=== PATIENT | female | born 1980 | race Caucasian/White ===

== ENCOUNTER 2017-03-09 17:02 | Emergency (ER) | payer MEDICAID ==
[~2017-03-09] VITALS: Ht 167.6 cm; Wt 140.0 kg
[~2017-03-09 17:02] MED LIST: IBUP-2030 PO
[2017-03-09] MEDS ORDERED: SODIUM CHLORIDE 0.9% 1,000 ML IV ONE (19:05)
[2017-03-09] MEDS ORDERED: ACETAMINOPHEN 325MG TABLET PO STA (19:05)
[2017-03-09] MEDS ORDERED: ONDANSETRON HCL 4MG/2ML VIAL IV STA (19:05)
[2017-03-09 20:07] LABS: BASOPHILS % 0.2 % (0.0-2.0); CARBON DIOXIDE 30 mEq/L (21-32); CHLORIDE 100 mEq/L (98-107); EOSINOPHILS % 0.4 % (0.0-5.0); HEMATOCRIT. 38.7 % (36.0-48.0); HEMOGLOBIN. 12.7 g/dL (12.0-16.0); LYMPHOCYTES % 7.7 % (20.0-50.0); MEAN CORPUSCULAR HEMOGLOBIN 27.6 pg (28.0-32.0); MEAN CORPUSCULAR VOLUME 84.2 fL (81.0-99.0); MEAN PLATELET VOLUME 8.1 fl (7.4-10.4); MONOCYTES % 4.5 % (2.0-8.0); NEUTROPHILS % 87.2 % (40.0-76.0); PLATELET 208 x1000/uL (130-400); RED CELL DISTRIBUTION WIDTH 15.2 % (11.6-14.6)
[2017-03-09 21:15] VITALS: BP 130/99
[2017-03-09 21:44] LABS: CLARITY URINE CLOUDY (CLEAR); COLOR URINE YELLOW (YELLOW); KETONES URINE NEGATIVE (NEGATIVE); LEUKOCYTE ESTERASE URINE TRACE (NEGATIVE); NITRITE URINE NEGATIVE (NEGATIVE); OCCULT BLOOD URINE NEGATIVE (NEGATIVE); PROTEIN URINE 2+ (NEGATIVE); SPECIFIC GRAVITY URINE 1.021 (1.005-1.030)
== END 2017-03-09 22:40 | disposition home or self-care (01) ==
LOC: ER 17:44
DX: J11.1 Influenza due to unidentified influenza virus with other respiratory manifestations (principal); N30.90 Cystitis, unspecified without hematuria; J45.909 Unspecified asthma, uncomplicated; Z88.8 Allergy status to other drugs, medicaments and biological substances
CPT/HCPCS: 36415; 71010; 80053; 81001; 85025; 87804; 96374; 99285; J2405; J7030

== ENCOUNTER 2018-03-05 14:46 | Inpatient (IN) | payer MEDICAID ==
[~2018-03-05] VITALS: Ht 160 cm; Wt 174.4 kg
[2018-03-05 17:13] LABS: CLARITY URINE CLOUDY (CLEAR); COLOR URINE YELLOW (YELLOW); KETONES URINE NEGATIVE (NEGATIVE); LEUKOCYTE ESTERASE URINE 2+ (NEGATIVE); NITRITE URINE NEGATIVE (NEGATIVE); OCCULT BLOOD URINE NEGATIVE (NEGATIVE); PH URINE 7.5 (4.5-8.0); PROTEIN URINE 1+ (NEGATIVE); SPECIFIC GRAVITY URINE 1.021 (1.005-1.030)
[2018-03-05 18:32] LABS: BASOPHILS % 0.6 % (0.0-2.0); EOSINOPHILS % 1.6 % (0.0-5.0); HEMATOCRIT. 39.8 % (36.0-48.0); HEMOGLOBIN. 13.1 g/dL (12.0-16.0); LYMPHOCYTES % 23.1 % (20.0-50.0); MEAN CORPUSCULAR HEMOGLOBIN 27.3 pg (28.0-32.0); MEAN PLATELET VOLUME 8.1 fl (7.4-10.4); MONOCYTES % 5.1 % (2.0-8.0); NEUTROPHILS % 69.6 % (40.0-76.0); PLATELET 282 x1000/uL (130-400); RED BLOOD CELL COUNT 4.79 mill/uL (4.2-5.4); RED CELL DISTRIBUTION WIDTH 14.2 % (11.6-14.6)
[2018-03-05 18:37] LABS: CHLORIDE 105 mEq/L (98-107)
[2018-03-05] MEDS ORDERED: KETOROLAC 30MG/ML VIAL IV PRN (20:00)
[2018-03-05] MEDS ORDERED: ONDANSETRON HCL 4MG/2ML INJ IV PRN (20:00)
[2018-03-05] MEDS ORDERED: ACETAMINOPHEN 325MG TABLET PO PRN (20:00)
[2018-03-05 20:14] LABS: LDL CHOLESTEROL 67 mg/dL (5-100)
[2018-03-05 20:15] LABS: HDL CHOLESTEROL 36 mg/dL (40-59)
[2018-03-05 20:16] LABS: CREATINE KINASE 25 IU/L (26-192); CREATINE KINASE MB FRACTION < 1.0 ng/mL (0.5-3.6)
[2018-03-05 21:50] VITALS: BP 132/76
[2018-03-06] VITALS: BP 113/61
[2018-03-06] MEDS ORDERED: CEFTRIAXONE 1 G PREMIX 50 ML IV SCH (03:00)
[2018-03-06 04:00] VITALS: BP 98/57
[2018-03-06 07:13] LABS: BASOPHILS % 0.4 % (0.0-2.0); EOSINOPHILS % 2.6 % (0.0-5.0); HEMOGLOBIN. 12.5 g/dL (12.0-16.0); LYMPHOCYTES % 24.6 % (20.0-50.0); MEAN CORPUSCULAR HEMOGLOBIN 27.6 pg (28.0-32.0); MEAN CORPUSCULAR VOLUME 84.2 fL (81.0-99.0); NEUTROPHILS % 65.4 % (40.0-76.0); PLATELET 259 x1000/uL (130-400); RED BLOOD CELL COUNT 4.51 mill/uL (4.2-5.4); RED CELL DISTRIBUTION WIDTH 14.7 % (11.6-14.6)
[2018-03-06 08:00] VITALS: BP 107/56
[2018-03-06 08:01] LABS: CHLORIDE 105 mEq/L (98-107)
[2018-03-06] MEDS ORDERED: ASPIRIN 81MG TABLET PO SCH (10:00)
[2018-03-06] MEDS ORDERED: REGADENOSON 0.4 MG/5 ML IV ONE ×2 (10:15→13:14)
[2018-03-06 12:00] VITALS: BP 112/64
[2018-03-06 12:19] LABS: T4 FREE 1.05 ng/dL (0.76-1.46)
[2018-03-06 16:00] VITALS: BP 119/62
[2018-03-06 16:16] VITALS: BP 107/56
[2018-03-07] MEDS ORDERED: CEFTRIAXONE 1 G PREMIX 50 ML IV SCH (02:00)
== END 2018-03-06 17:04 | disposition home or self-care (01) | DRG 203 ==
LOC: ER 14:46 → 6WST 17:48 → EDBEDREQ 17:59 → EDBEDREQTM 17:59 → ENRESERV 20:43
PROVIDERS: ADMIT Internal Medicine; ATTEND Internal Medicine
DX: M94.0 Chondrocostal junction syndrome [Tietze] (principal); E44.1 Mild protein-calorie malnutrition; N39.0 Urinary tract infection, site not specified; R07.9 Chest pain, unspecified; E66.01 Morbid (severe) obesity due to excess calories; E78.5 Hyperlipidemia, unspecified; I10 Essential (primary) hypertension; G43.909 Migraine, unspecified, not intractable, without status migrainosus; Z68.44 Body mass index [BMI] 60.0-69.9, adult
CPT/HCPCS: 36415; 71045; 78452; 80048; 80061; 81025; 82550; 82553; 83036; 83880; 84439; 84443; 84484; 85379; 93005; 93017; 93306; 93970; 99285; A9500; J0696; J2785

== ENCOUNTER 2018-04-27 14:25 | Emergency (ER) | payer MEDICAID ==
[~2018-04-27] VITALS: Ht 160 cm; Wt 172.0 kg
[2018-04-27 15:28] VITALS: BP 142/85
== END 2018-04-27 17:54 | disposition home or self-care (01) ==
LOC: ER 14:49
DX: J06.9 Acute upper respiratory infection, unspecified (principal); I10 Essential (primary) hypertension; J45.909 Unspecified asthma, uncomplicated; Z87.19 Personal history of other diseases of the digestive system; Z98.890 Other specified postprocedural states
CPT/HCPCS: 99283

== ENCOUNTER 2018-07-15 18:19 | Emergency (ER) | payer MEDICAID ==
[~2018-07-15] VITALS: Ht 160 cm; Wt 160.0 kg
[2018-07-15] MEDS ORDERED: SODIUM CHLORIDE 0.9% 1,000 ML IV ONE (20:12)
[2018-07-15] MEDS ORDERED: ALBUTEROL (0.083%) 2.5MG/3ML NEB HHN STA (20:39)
[2018-07-15 21:06] LABS: BASOPHILS % 0.5 % (0.0-2.0); EOSINOPHILS % 4.9 % (0.0-5.0); HEMOGLOBIN. 12.8 g/dL (12.0-16.0); LYMPHOCYTES % 17.6 % (20.0-50.0); MEAN CORPUSCULAR HEMOGLOBIN 27.7 pg (28.0-32.0); MEAN CORPUSCULAR VOLUME 84.1 fL (81.0-99.0); MEAN PLATELET VOLUME 8.5 fl (7.4-10.4); MONOCYTES % 4.9 % (2.0-8.0); NEUTROPHILS % 72.1 % (40.0-76.0); PLATELET 200 x1000/uL (130-400); RED BLOOD CELL COUNT 4.64 mill/uL (4.2-5.4); RED CELL DISTRIBUTION WIDTH 14.3 % (11.6-14.6)
[2018-07-15 21:08] LABS: *AMPHETAMINES SCREEN URINE NEGATIVE (NEGATIVE); *BARBITURATES SCREEN URINE NEGATIVE (NEGATIVE)
[2018-07-15 21:09] LABS: *BENZODIAZEPINES SCREEN URINE NEGATIVE (NEGATIVE); *COCAINE SCREEN URINE NEGATIVE (NEGATIVE); CANNABINOID URINE SCREEN NEGATIVE (NEGATIVE); METHADONE URINE SCREEN NEGATIVE (NEGATIVE); OPIATES URINE SCREEN NEGATIVE (NEGATIVE); PHENCYCLIDINE URINE SCREEN NEGATIVE (NEGATIVE)
[2018-07-15 21:12] LABS: PARTIAL THROMBOPLASTIN TIME 26.9 sec (23.4-31.0); PROTHROMBIN TIME 10.1 sec (9.6-11.0)
[2018-07-15 21:14] LABS: CLARITY URINE CLOUDY (CLEAR); COLOR URINE YELLOW (YELLOW); KETONES URINE NEGATIVE (NEGATIVE); LEUKOCYTE ESTERASE URINE 3+ (NEGATIVE); NITRITE URINE NEGATIVE (NEGATIVE); OCCULT BLOOD URINE NEGATIVE (NEGATIVE); PH URINE 6.5 (4.5-8.0); PROTEIN URINE TRACE (NEGATIVE); SPECIFIC GRAVITY URINE 1.016 (1.005-1.030); UROBILINOGEN URINE 0.2 E.U./dL (0.2-1.0)
[2018-07-15 21:23] LABS: CHLORIDE 106 mEq/L (98-107)
[2018-07-15 21:27] LABS: ETHANOL BLOOD < 10 mg/dL
[2018-07-15 21:35] LABS: HCG SCREEN NEGATIVE
[2018-07-16 00:31] VITALS: BP 133/68
== END 2018-07-16 00:30 | disposition home or self-care (01) ==
LOC: ER 18:19
DX: J45.909 Unspecified asthma, uncomplicated (principal); J20.9 Acute bronchitis, unspecified; N39.0 Urinary tract infection, site not specified; R07.89 Other chest pain; E66.01 Morbid (severe) obesity due to excess calories; Z68.44 Body mass index [BMI] 60.0-69.9, adult; I10 Essential (primary) hypertension; Z90.49 Acquired absence of other specified parts of digestive tract; Z98.890 Other specified postprocedural states; Z79.899 Other long term (current) drug therapy
CPT/HCPCS: 36415; 71045; 80053; 80305; 80320; 81003; 81025; 83690; 83880; 84484; 84703; 85025; 85610; 85730; 87086; 93005; 94640; 99284; J7030; J7611; G0480

== ENCOUNTER 2019-01-25 17:29 | Emergency (ER) | payer MEDICAID ==
[~2019-01-25] VITALS: Ht 160 cm; Wt 181.0 kg
[2019-01-25] MEDS ORDERED: LORAZEPAM 0.5MG TABLET PO ONE (19:45)
[2019-01-25 20:20] VITALS: BP 152/49
== END 2019-01-25 20:36 | disposition home or self-care (01) ==
LOC: ER 17:29
DX: F41.9 Anxiety disorder, unspecified (principal); R06.02 Shortness of breath; J45.909 Unspecified asthma, uncomplicated; I10 Essential (primary) hypertension; Z90.49 Acquired absence of other specified parts of digestive tract; Z98.890 Other specified postprocedural states
CPT/HCPCS: 99284

== ENCOUNTER 2019-05-28 15:48 | Inpatient (IN) | payer MEDICAID ==
[~2019-05-28] VITALS: Ht 160 cm; Wt 190.5 kg
[2019-05-28] MEDS ORDERED: FUROSEMIDE 40MG/4ML VIAL IV ONE (18:45)
[2019-05-28] MEDS ORDERED: ASPIRIN 81MG TABLET PO ONE (18:45)
[2019-05-28] MEDS ORDERED: NITROGLYCERIN OINT 1GM/INCH UDPKT TD ONE (18:45)
[2019-05-28 19:59] LABS: BASOPHILS % 1.5 % (0.0-2.0); EOSINOPHILS % 2.2 % (0.0-5.0); HEMATOCRIT. 34.5 % (36.0-48.0); HEMOGLOBIN. 11.6 g/dL (12.0-16.0); LYMPHOCYTES % 21.6 % (20.0-50.0); MEAN CORPUSCULAR HEMOGLOBIN 28.1 pg (28.0-32.0); MEAN CORPUSCULAR VOLUME 83.6 fL (81.0-99.0); MEAN PLATELET VOLUME 8.4 fl (7.4-10.4); MONOCYTES % 6.9 % (2.0-8.0); NEUTROPHILS % 67.8 % (40.0-76.0); PLATELET 260 x1000/uL (130-400); RED BLOOD CELL COUNT 4.13 mill/uL (4.2-5.4); RED CELL DISTRIBUTION WIDTH 15.2 % (11.6-14.6)
[2019-05-28 20:06] LABS: CHLORIDE 107 mEq/L (98-107)
[2019-05-28 20:07] LABS: INR 0.9; PARTIAL THROMBOPLASTIN TIME 29.4 sec (23.4-31.0)
[2019-05-28 20:11] LABS: HCG SCREEN NEGATIVE
[2019-05-29 02:50] VITALS: BP 122/69
[2019-05-29] MEDS ORDERED: IPRATROPIUM/ALBUTEROL 0.5-3(2.5)MG/3ML NEB HHN PRN (04:15)
[2019-05-29] MEDS ORDERED: ACETAMINOPHEN 325MG TABLET PO PRN (04:15)
[2019-05-29] MEDS ORDERED: MORPHINE SULFATE 2 MG/ML CPJ (NOT FOR IM USE) IV PRN (04:15)
[2019-05-29] MEDS ORDERED: IPRATROPIUM/ALBUTEROL 0.5-3(2.5)MG/3ML NEB HHN SCH (04:15)
[2019-05-29] MEDS ORDERED: PNEUMOCOCCAL 23-VAL P-SAC VAC 0.5 ML IM ONE (06:00)
[2019-05-29 08:00] VITALS: BP 104/55
[2019-05-29] MEDS ORDERED: INFLUENZA VIRUS VACCINE(AFLURIA) 0.5ML SYR IM ONE (08:00)
[2019-05-29] MEDS ORDERED: ONDANSETRON HCL 4MG/2ML INJ IV PRN (08:45)
[2019-05-29] MEDS ORDERED: AMLODIPINE 10MG TABLET PO SCH (09:00)
[2019-05-29] MEDS: FUROSEMIDE 40MG/4ML VIAL IVP SCH ×2 (09:40→16:34)
[2019-05-29] MEDS: ASPIRIN 325MG EC TABLET PO SCH (09:40)
[2019-05-29 12:00] VITALS: BP 116/59
[2019-05-29] MEDS: DILTIAZEM HCL 30MG TABLET PO SCH ×2 (15:16→22:00)
[2019-05-29 16:00] VITALS: BP 110/58
[2019-05-29 20:00] VITALS: BP 94/59
[2019-05-30] VITALS: BP 101/54
[2019-05-30 04:00] VITALS: BP 128/83
[2019-05-30] MEDS: DILTIAZEM HCL 30MG TABLET PO SCH (06:40)
[2019-05-30 07:29] LABS: BASOPHILS % 0.4 % (0.0-2.0); EOSINOPHILS % 3.1 % (0.0-5.0); HEMATOCRIT. 35.4 % (36.0-48.0); HEMOGLOBIN. 12.1 g/dL (12.0-16.0); LYMPHOCYTES % 18.1 % (20.0-50.0); MEAN CORPUSCULAR HEMOGLOBIN 28.2 pg (28.0-32.0); MEAN CORPUSCULAR VOLUME 82.7 fL (81.0-99.0); MONOCYTES % 7.4 % (2.0-8.0); PLATELET 275 x1000/uL (130-400); RED BLOOD CELL COUNT 4.28 mill/uL (4.2-5.4)
[2019-05-30 07:40] LABS: CHLORIDE 102 mEq/L (98-107)
[2019-05-30 08:00] VITALS: BP 143/93
[2019-05-30] MEDS: ASPIRIN 325MG EC TABLET PO SCH (08:18)
[2019-05-30] MEDS: FUROSEMIDE 40MG/4ML VIAL IVP SCH (08:18)
[2019-05-30 12:00] VITALS: BP 104/65
[2019-05-30] MEDS ORDERED: DILTIAZEM HCL 120MG CAPSULE CD 24HR PO SCH (13:34)
[2019-05-30 15:08] VITALS: BP 104/65
== END 2019-05-30 16:03 | disposition home or self-care (01) | DRG 194 ==
LOC: ER 15:48 → EDBEDREQ 18:49 → 7WST 23:34 → EDBEDREQ 23:41 → EDBEDREQTM 23:41 → ENRESERV 05-29 00:23
PROVIDERS: ADMIT Internal Medicine; ATTEND Internal Medicine
DX: I11.0 Hypertensive heart disease with heart failure (principal); J84.9 Interstitial pulmonary disease, unspecified; E44.0 Moderate protein-calorie malnutrition; I24.9 Acute ischemic heart disease, unspecified; I50.41 Acute combined systolic (congestive) and diastolic (congestive) heart failure; R07.9 Chest pain, unspecified; E66.01 Morbid (severe) obesity due to excess calories; Z68.45 Body mass index [BMI] 70 or greater, adult; D64.9 Anemia, unspecified; F41.9 Anxiety disorder, unspecified
CPT/HCPCS: 36415; 71045; 73630; 80048; 80053; 83880; 84484; 84703; 85025; 90686; 90732; 93005; 93306; 93970; 99285; J1940

== ENCOUNTER 2019-08-31 14:26 | Emergency (ER) | payer MEDICAID ==
[~2019-08-31] VITALS: Ht 160 cm; Wt 159.0 kg
[2019-08-31] MEDS ORDERED: IBUPROFEN 600MG TABLET PO ONE (15:30)
[2019-08-31 16:19] VITALS: BP 109/90
== END 2019-08-31 17:04 | disposition home or self-care (01) ==
LOC: ER 14:26
DX: S93.492A Sprain of other ligament of left ankle, initial encounter (principal); I10 Essential (primary) hypertension; E11.9 Type 2 diabetes mellitus without complications; F41.9 Anxiety disorder, unspecified; J45.909 Unspecified asthma, uncomplicated; E66.9 Obesity, unspecified; Z68.44 Body mass index [BMI] 60.0-69.9, adult; Z90.49 Acquired absence of other specified parts of digestive tract; Z87.81 Personal history of (healed) traumatic fracture; X50.1XXA Overexertion from prolonged static or awkward postures, initial encounter; Y93.89 Activity, other specified; Y92.018 Other place in single-family (private) house as the place of occurrence of the external cause
CPT/HCPCS: 73610; 99283

== ENCOUNTER 2022-05-13 11:05 | Emergency (ER) | payer MEDICAID, OTHER ==
[~2022-05-13] VITALS: Ht 167.6 cm; Wt 181.0 kg
[2022-05-13] MEDS ORDERED: IPRATROPIUM/ALBUTEROL 0.5-3(2.5)MG/3ML NEB HHN ONE (11:30)
[2022-05-13] MEDS ORDERED: PREDNISONE 20MG TABLET PO ONE (11:30)
[2022-05-13] MEDS ORDERED: ALBU6.7H15 INH (14:46)
[2022-05-13] MEDS ORDERED: P20 MT (14:46)
[2022-05-13 14:55] VITALS: BP 129/67
== END 2022-05-13 15:15 | disposition home or self-care (01) ==
LOC: ER 11:47
DX: R06.2 Wheezing (principal); R05.9 Cough, unspecified; F41.9 Anxiety disorder, unspecified; I10 Essential (primary) hypertension; Z98.890 Other specified postprocedural states; Z90.49 Acquired absence of other specified parts of digestive tract
CPT/HCPCS: 71045; 94640; 99283; J7512; Z7610

== ENCOUNTER 2022-06-11 10:42 | Emergency (ER) | payer OTHER ==
[~2022-06-11] VITALS: Ht 162.6 cm; Wt 204.0 kg
[~2022-06-11 10:42] MED LIST changes: +ALBU6.7H15 INH; -IBUP-2030 PO; +P20 MT
[2022-06-11 10:51] VITALS: BP 149/46
[2022-06-11 11:51] LABS: BASOPHILS % 0.2 % (0.0-2.0); EOSINOPHILS % 2.4 % (0.0-5.0); HEMATOCRIT. 34.8 % (36.0-48.0); HEMOGLOBIN. 11.6 g/dL (12.0-16.0); LYMPHOCYTES % 15.4 % (20.0-50.0); MEAN CORPUSCULAR HEMOGLOBIN 27.2 pg (28.0-32.0); MEAN CORPUSCULAR VOLUME 81.9 fL (81.0-99.0); MEAN PLATELET VOLUME 7.7 fl (7.4-10.4); MONOCYTES % 4.9 % (2.0-8.0); NEUTROPHILS % 77.1 % (40.0-76.0); PLATELET 282 x1000/uL (130-400); RED BLOOD CELL COUNT 4.25 mill/uL (4.2-5.4); RED CELL DISTRIBUTION WIDTH 16.6 % (11.6-14.6)
[2022-06-11 11:54] LABS: CHLORIDE 107 mEq/L (98-107)
[2022-06-11 11:55] LABS: HCG SCREEN NEGATIVE
== END 2022-06-11 16:29 | disposition home or self-care (01) ==
LOC: ER 10:56
DX: N93.8 Other specified abnormal uterine and vaginal bleeding (principal); F41.9 Anxiety disorder, unspecified; J45.909 Unspecified asthma, uncomplicated; I10 Essential (primary) hypertension; Z98.890 Other specified postprocedural states; Z90.49 Acquired absence of other specified parts of digestive tract
CPT/HCPCS: 36415; 76830; 76856; 80053; 84703; 85025; 99284

== ENCOUNTER 2022-09-06 17:19 | Emergency (ER) | payer MEDICAID, OTHER ==
[~2022-09-06] VITALS: Ht 152.4 cm; Wt 181.0 kg
[2022-09-06 17:20] VITALS: BP 148/71; O2SAT 98
[2022-09-06] MEDS ORDERED: ACETAMINOPHEN 325MG TABLET PO ONE (17:45)
[2022-09-06] MEDS ORDERED: SODIUM CHLORIDE 0.9% 1,000 ML IV ONE (18:30)
[2022-09-06] MEDS ORDERED: METOCLOPRAMIDE HCL 10MG/2ML VIAL IV ONE (18:30)
[2022-09-06 20:12] VITALS: PULSE 96; RESP 18; TEMP 97.9
== END 2022-09-06 20:13 | disposition home or self-care (01) ==
LOC: ER 17:29
DX: R51.9 Headache, unspecified (principal); F41.9 Anxiety disorder, unspecified; J45.909 Unspecified asthma, uncomplicated; I10 Essential (primary) hypertension; Z98.890 Other specified postprocedural states; Z90.49 Acquired absence of other specified parts of digestive tract
CPT/HCPCS: 99284; 70450; 81025; J7030

== ENCOUNTER 2023-12-12 10:56 | Emergency (ER) | payer OTHER ==
[~2023-12-12] VITALS: Ht 165.1 cm; Wt 205.0 kg
[~2023-12-12 10:56] MED LIST changes: +CEPH500T PO; +IBUP-2029 PO; +SULF1TAB48 PO
[2023-12-12 10:59] VITALS: O2SAT 98
[2023-12-12] MEDS: KETOROLAC 30MG/ML VIAL IV STA (12:13)
[2023-12-12] MEDS: METOCLOPRAMIDE HCL 10MG/2ML VIAL IV ONE (12:14)
[2023-12-12] MEDS: SODIUM CHLORIDE 0.9% 1,000 ML IV ONE (12:14)
[2023-12-12] MEDS ORDERED: IBUP-2029 PO (12:15)
[2023-12-12 13:15] VITALS: BP 145/75; PULSE 87; RESP 16; TEMP 36.72516; O2SAT 98
== END 2023-12-12 13:20 | disposition home or self-care (01) ==
LOC: ER 10:56
DX: R51.9 Headache, unspecified (principal); F41.9 Anxiety disorder, unspecified; J45.909 Unspecified asthma, uncomplicated; I10 Essential (primary) hypertension; Z79.899 Other long term (current) drug therapy; Z90.49 Acquired absence of other specified parts of digestive tract; Z98.890 Other specified postprocedural states
CPT/HCPCS: 99284; 96374; 96361; 96375; 81025; J1885; J2765; J7030

== ENCOUNTER 2024-03-23 09:31 | Emergency (ER) | payer OTHER ==
[~2024-03-23] VITALS: Ht 160 cm; Wt 200.0 kg
[2024-03-23 09:35] VITALS: TEMP 98.4; O2SAT 98
[2024-03-23 12:14] VITALS: BP 139/80; PULSE 108; RESP 18
[2024-03-23] MEDS: KETOROLAC 30MG/ML VIAL IV ONE (12:14)
[2024-03-23 13:12] LABS: CHLORIDE 102 mEq/L (98-107); POTASSIUM 4.1 mEq/L (3.5-5.1); SODIUM 135 mEq/L (136-145)
[2024-03-23 13:13] LABS: CARBON DIOXIDE 23 mEq/L (21-32)
[2024-03-23 13:14] LABS: CALCIUM 9.1 mg/dL (8.7-10.4)
[2024-03-23 13:18] LABS: CREATININE 0.7 mg/dL (0.6-1.0); GLUCOSE 105 mg/dL (70-105); UREA NITROGEN BLOOD 10 mg/dL (9-23)
[2024-03-23 13:22] LABS: T4 FREE 1.54 ng/dL (0.89-1.76)
[2024-03-23 13:23] LABS: THYROID STIMULATING HORMONE 1.09 uIU/mL (0.55-4.78)
[2024-03-23] MEDS ORDERED: KETO10TA2 MT (14:49)
[2024-03-23 15:11] LABS: BASOPHILS % 0.1 % (0.0-2.0); EOSINOPHILS % 0.1 % (0.0-5.0); HEMATOCRIT. 41.2 % (36.0-48.0); HEMOGLOBIN. 13.2 g/dL (12.0-16.0); LYMPHOCYTES % 10.4 % (20.0-50.0); MEAN CORPUSCULAR HEMOGLOBIN 26.9 pg (28.0-32.0); MEAN CORPUSCULAR HGB CONC 32.1 g/dL (31.0-37.0); MEAN CORPUSCULAR VOLUME 83.6 fL (81.0-99.0); MEAN PLATELET VOLUME 7.9 fl (7.4-10.4); MONOCYTES % 6.1 % (2.0-8.0); NEUTROPHILS % 83.3 % (40.0-76.0); PLATELET 307 x1000/uL (130-400); RED BLOOD CELL COUNT 4.92 mill/uL (4.2-5.4); RED CELL DISTRIBUTION WIDTH 15.4 % (11.6-14.6); WHITE BLOOD COUNT 15.6 x1000/uL (4.5-11.0)
== END 2024-03-23 16:00 | disposition home or self-care (01) ==
LOC: ER 09:40
DX: E04.2 Nontoxic multinodular goiter (principal); F41.9 Anxiety disorder, unspecified; J45.909 Unspecified asthma, uncomplicated; I10 Essential (primary) hypertension; Z98.890 Other specified postprocedural states; Z90.49 Acquired absence of other specified parts of digestive tract
CPT/HCPCS: 99285; 96374; 80048; 84439; 84443; 85025; 36415; 76536; J1885; 99284